=== PATIENT | female | born 1960 | race Caucasian/White ===

== ENCOUNTER 2021-05-28 11:40 | Inpatient (IN) | payer MEDICARE, SELFPAY ==
[2021-05-28] VITALS (7 sets, daily range): BP systolic 93–178; BP diastolic 65–97; PULSE 74–101; RESP 15–18; TEMP 36.6–37.1; O2SAT 92–99; BMI 22.3
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
[2021-05-28 12:12] LABS: Basophils # 0.1 10^3/uL (0.0-0.1); Basophils % 0.8 %; Eosinophils # 0.2 10^3/uL (0.0-0.8); Eosinophils % 1.8 %; Hematocrit 44.7 % (37.0-47.0); Hemoglobin 15.2 g/dL (11.5-15.3); Lymphocytes # 2.9 10^3/uL (0.8-4.8); Lymphocytes % 28.3 %; Mean Corpuscular Hemoglobin 30.2 pg (28.0-34.0); Mean Corpuscular Volume 88.7 fl (81-99); Mean Platelet Volume 11.8 fL (7.4-10.4); Monocytes # 0.5 10^3/uL (0.2-0.9); Monocytes % 4.9 %; Neutrophils # 6.49 10^3/uL (1.8-7.7); Neutrophils % 63.9 %; Nucleated Red Blood Cells % 0 %; Platelet Count 339 10^3/cmm (130-400); Red Blood Count 5.04 10^6/uL (4.1-5.3); Red Cell Distribution Width 12.8 % (12.1-15.1); White Blood Count 10.2 10^3/uL (4.0-10.0)
[2021-05-28 12:28] LABS: Anion Gap 13.3 (5-19); Blood Urea Nitrogen 13 mg/dL (8-23); Calcium 9.7 mg/dL (8.5-10.5); Carbon Dioxide 27 mmol/L (22-29); Chloride 97 mmol/L (98-107); Creatinine Clr Calc Pharmacy 105.2144; Glomerular Filtration Rate 125.4 mL/min (90-130); Glucose 260 mg/dL (65-115); Osmolality Calculated 285 mOsm/kg (285-295); Potassium 4.3 mmol/L (3.5-5.1); Sodium 133 mmol/L (136-145)
[2021-05-28] MEDS: acetaminophen 500 mg Tablet PO (12:30)
[2021-05-28 12:32] LABS: Acetaminophen < 5.0 ug/mL (10-30); Salicylate < 0.3 mg/dL (3-10)
--- NOTE | 2021-05-28 12:40 | PC.PHAR ---
pt states she takes care of her own medications-rx filled on 05/19/21 for metformin plain 500mg 14d/s from er dr [place] for 500mg bid-pt states she takes bid to tid-pt states she use to be on nph but hasnt used that insulin for 3-4 years
[2021-05-28] MEDS: metformin 500 mg Tablet PO (17:15)
[2021-05-28] MEDS: hyDROXYzine 25 mg Capsule 50 MG PO ×2 (17:17→19:47)
--- NOTE | 2021-05-28 17:23 | PC.NURSE ---
PRN VISTARIL 50 MG GIVEN PO PER PT C/O STATED ANXIETY PT TEARFUL UP ON UNIT
[2021-05-28] MEDS: trazodone 50 mg Tablet PO (19:47)
[2021-05-28 21:51] LABS: Glucose Point of Care 344 mg/dL (70-110)
[2021-05-29 06:00] VITALS: BP 155/78; PULSE 85; RESP 15; TEMP 37.1; O2SAT 97
[2021-05-29 06:44] LABS: Glucose Point of Care 384 mg/dL (70-110)
[2021-05-29] MEDS: metformin 500 mg Tablet PO ×2 (08:10→16:49)
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
--- NOTE | 2021-05-29 12:23 | NPU.GN ---
[facility] Group Topic:Thought Processing General Mood of Group: The patient come to group willingly. The patient was on time, good hygiene and properly dressed. The group discussed how the mind thinks and discussed negative thoughts and how we process those negative thoughts. The patient did participate in the group. The patient were all gave a thought table to be able to list specific negative thoughts and were able to come up with different ways to cope with those thoughts. The group was able to go outside for fresh air, which in turn helped the group to open up more. Information about the NPU was discussed, information about the routine for NPU, the doctor and nursing staff as well as social sciences professor and how they each play a part in their care while here. 96 hr holds and 21 day holds were also explained as well.
[2021-05-29 14:00] VITALS: BP 159/78; PULSE 93; RESP 20; TEMP 36.8; O2SAT 97
[2021-05-29 20:17] LABS: Glucose Point of Care 376 mg/dL (70-110)
[2021-05-29 20:52] VITALS: BP 159/75; PULSE 100; RESP 17; TEMP 36.7; O2SAT 96
[2021-05-29] MEDS: hyDROXYzine 25 mg Capsule 50 MG PO (21:19)
[2021-05-29] MEDS: trazodone 50 mg Tablet PO (21:20)
[2021-05-30 06:00] VITALS: BP 162/77; PULSE 94; RESP 20; TEMP 36.8; O2SAT 96
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
[2021-05-30 06:59] LABS: Glucose Point of Care 436 mg/dL (70-110)
[2021-05-30] MEDS: metformin 500 mg Tablet PO ×2 (07:38→18:03)
[2021-05-30 11:19] LABS: Glucose Point of Care 491 mg/dL (70-110)
[2021-05-30 14:00] VITALS: BP 173/86; PULSE 98; RESP 20; TEMP 36.6; O2SAT 98
--- NOTE | 2021-05-30 15:51 | PC.NURSE ---
Physician notified of elevated blood sugars. Dr. Mccullough will be putting in a hospitalist consult.
[2021-05-30] MEDS: hyDROXYzine 25 mg Capsule 50 MG PO ×2 (18:03→20:07)
[2021-05-30] MEDS: trazodone 50 mg Tablet PO (20:07)
--- NOTE | 2021-05-30 20:10 | PC.NURSE ---
pt requested sleep and anxiety meds. Trazodone 50mg po for sleep and Vistaril 50mg po for anxiety given.
[2021-05-30 20:40] VITALS: BP 121/75; PULSE 98; RESP 17; TEMP 37; O2SAT 96
--- NOTE | 2021-05-31 | PC.NURSE ---
pt resting quietly at this time with both eyes closed.
[2021-05-31 06:00] VITALS: BP 121/75; PULSE 98; RESP 17; TEMP 37; O2SAT 96
[2021-05-31 06:39] LABS: Glucose Point of Care 466 mg/dL (70-110)
[2021-05-31 07:25] LABS: Amphetamines Screen Urine Negative (Negative); Barbiturates Screen Urine Negative (Negative); Benzodiazepines Screen Urine Negative (Negative); Cocaine Screen Urine Negative (Negative); Opiate Screen Urine Negative (Negative); PCP Screen Urine Negative (Negative); THC Screen Urine Negative (Negative)
[2021-05-31] MEDS: metformin 500 mg Tablet PO ×2 (09:30→17:33)
[2021-05-31 11:34] LABS: Glucose Point of Care 494 mg/dL (70-110)
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
[2021-05-31 14:00] VITALS: BP 147/71; PULSE 108; RESP 20; TEMP 36.3; O2SAT 97
[2021-05-31 15:04] LABS: Glucose Point of Care 97 mg/dL (70-110)
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
[2021-05-31 17:00] LABS: Glucose Point of Care 137 mg/dL (70-110)
[2021-05-31 20:27] LABS: Glucose Point of Care 315 mg/dL (70-110)
[2021-05-31] MEDS: ARIPiprazole 10 mg Tablet 5 MG PO (21:24)
[2021-05-31] MEDS: insulin glargine 100 units/1 mL 10 UNIT SUBCUT ×2 (21:27→22:28)
[2021-05-31 22:00] VITALS: BP 171/82; PULSE 107; RESP 18; TEMP 36.7; O2SAT 93
[2021-06-01 06:00] VITALS: BP 121/69; PULSE 92; RESP 17; TEMP 36.8; O2SAT 98
[2021-06-01 07:27] LABS: Glucose Point of Care 315 mg/dL (70-110)
[2021-06-01] MEDS: metformin 500 mg Tablet PO ×2 (09:28→16:41)
[2021-06-01] MEDS: ARIPiprazole 10 mg Tablet 5 MG PO (09:28)
--- NOTE | 2021-06-01 10:53 | P.PN_ITS ---
Subjective Subjective: Interval history: Bebe reports she is doing okay. She has no complaints. Medications: Reviewed: Yes Vitals/I&O/Wt Last Vital Signs Temp 98.2 F 06/01/21 06:00 Pulse 92 06/01/21 06:00 Resp 17 06/01/21 06:00 BP 121/69 06/01/21 06:00 Pulse Ox 98 06/01/21 06:00 Physical Exam 2 Narrative: EXAM NARRATIVE: General female in no acute distress, informative. Neck supple no lymphadenopathy or JVD. Respiratory clear to auscultation no wheezes. Cardio regular rate and rhythm no murmurs. GI soft nontender positive bowel sounds Extremities no cyanosis clubbing or edema Data : 05/28/21 12:01 05/28/21 12:01 A&P Assessment and plan (1) Diabetes: Sliding Scale carbohydrate consistent meals Await hemoglobin A1c, TSH Increase Lantus to 20 units at night Status: Acute (2) Alcohol use disorder, moderate, dependence: Montior for alcohol withdrawl. Status: Acute (3) Suicidal ideation: Defer to psychiatry Status: Acute (4) Bipolar 1 disorder, depressed: Defer to psychiatry Status: Acute Additional A&P Information Thank you for this consultation At this point I will sign off. Please call if any questions. She should be discharged on 20 units of Lantus and her Metformin. She will need to see her primary care provider 3 to 4 days after discharge for review of sugars. It is unpredictable after discharged with these will run, and depends greatly on her oral intake. Please call with any questions or changes. 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
[2021-06-01 11:53] LABS: Thyroid Stimulating Hormone 0.76 uIU/mL (0.27-4.20)
[2021-06-01 14:00] VITALS: BP 121/74; PULSE 99; RESP 20; TEMP 36.5; O2SAT 95
[2021-06-01 15:45] LABS: Estmated Average Glucose 292; Hemoglobin A1C 11.8 % (4.0-6.0)
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
[2021-06-01] MEDS: hyDROXYzine 25 mg Capsule 50 MG PO (20:36)
[2021-06-01] MEDS: trazodone 50 mg Tablet PO (20:36)
[2021-06-01] MEDS: insulin glargine 100 units/1 mL 10 UNIT SUBCUT (20:37)
[2021-06-01 22:00] VITALS: BP 121/74; PULSE 99; RESP 20; TEMP 36.5; O2SAT 95
[2021-06-01 22:26] VITALS: BP 159/80; PULSE 92; RESP 16; TEMP 36.4; O2SAT 97
[2021-06-02] MEDS: trazodone 50 mg Tablet PO ×2 (00:31→21:34)
[2021-06-02 06:00] VITALS: BP 124/65; PULSE 110; RESP 18; TEMP 36.6; O2SAT 97
[2021-06-02] MEDS: metformin 500 mg Tablet PO ×3 (08:30→21:34)
[2021-06-02] MEDS: ondansetron 4 MG Tablet PO (11:34)
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
[2021-06-02 14:00] VITALS: BP 130/79; PULSE 95; RESP 16; TEMP 36.2; O2SAT 95
[2021-06-02 15:15] LABS: Creatine Phosphokinase 40 U/L (26-192)
[2021-06-02 20:00] VITALS: BP 131/71; PULSE 93; RESP 18; TEMP 36.9; O2SAT 96
[2021-06-02] MEDS: insulin glargine 100 units/1 mL 10 UNIT SUBCUT (21:34)
[2021-06-02] MEDS: hyDROXYzine 25 mg Capsule 50 MG PO (21:34)
--- NOTE | 2021-06-02 21:40 | PC.NURSE ---
pt requested sleep and anxiety meds, Vistaril 50mg po and Trazodone 50mg po given.
--- NOTE | 2021-06-02 23:00 | PC.NURSE ---
pt resting quietly with both eyes closed.
[2021-06-02 23:12] LABS: Add Urine Microscopic? NO; Charge for UA Resulting for Rev
[2021-06-02 23:27] LABS: Bilirubin Urine Neg (Negative); Blood Urine Neg (Negative); Glucose Urine UA 4+ (Normal); Ketones Urine Negative (Negative); Leukocyte Esterase Urine Negative (Negative); Nitrate Urine Negative (Negative); Protein Urine Neg (Negative); Specific Gravity, Urine 1.005 (1.005-1.030); Urine Appearance Clear (CLEAR); Urine Color Straw (Yellow); Urobilinogen Urine Norm (Negative); pH Urine 5 (5-7)
[2021-06-03] MEDS: ibuprofen 200 mg Tablet 600 MG PO (01:26)
[2021-06-03 06:00] VITALS: BP 131/71; PULSE 93; RESP 18; TEMP 36.9; O2SAT 96; BMI 22.3
[2021-06-03] MEDS: ondansetron 4 MG Tablet PO (07:02)
[2021-06-03 08:06] LABS: Glucose Point of Care 192 mg/dL (70-110)
[2021-06-03 08:06] LABS: Glucose Point of Care 386 mg/dL (70-110)
[2021-06-03 08:06] LABS: Glucose Point of Care 210 mg/dL (70-110)
[2021-06-03 08:06] LABS: Glucose Point of Care 245 mg/dL (70-110)
[2021-06-03 08:06] LABS: Glucose Point of Care 361 mg/dL (70-110)
[2021-06-03 08:06] LABS: Glucose Point of Care 232 mg/dL (70-110)
[2021-06-03 08:06] LABS: Glucose Point of Care 170 mg/dL (70-110)
[2021-06-03 08:06] LABS: Glucose Point of Care 406 mg/dL (70-110)
[2021-06-03] MEDS: metformin 500 mg Tablet PO ×2 (09:54→16:47)
--- NOTE | 2021-06-03 09:55 | PC.NURSE ---
Patient refused Abilify after it was opened. Wasted in the Pyxis
[2021-06-03 11:30] LABS: Glucose Point of Care 346 mg/dL (70-110)
[2021-06-03] MEDS: nicotine 21 mg Patch 1 PATCH TRANSDERMA (12:23)
[2021-06-03 14:00] VITALS: BP 135/74; PULSE 97; RESP 14; TEMP 36.8; O2SAT 97
[2021-06-03 16:37] LABS: Glucose Point of Care 189 mg/dL (70-110)
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
[2021-06-03 20:10] LABS: Glucose Point of Care 256 mg/dL (70-110)
[2021-06-03] MEDS: trazodone 50 mg Tablet PO (21:00)
[2021-06-03] MEDS: hyDROXYzine 25 mg Capsule 50 MG PO (21:00)
[2021-06-03] MEDS: insulin glargine 100 units/1 mL 10 UNIT SUBCUT (21:00)
[2021-06-03 21:29] VITALS: BP 154/78; PULSE 88; RESP 16; TEMP 36.6; O2SAT 95
[2021-06-04] MEDS: acetaminophen 325 mg Tablet 650 MG PO (03:07)
[2021-06-04] MEDS: hyDROXYzine 25 mg Capsule 50 MG PO ×2 (03:07→19:44)
--- NOTE | 2021-06-04 03:09 | PC.NURSE ---
pt requesting more pain, sleep and anxiety med. pt advised staff is unable to give sleep med after 2am but is able to give her more Vistaril. Vistaril 50mg po given for anxiety and Tylenol 650mg po given for c/o neck/head pain rated 10/10.
[2021-06-04 03:22] LABS: Glucose Point of Care 276 mg/dL (70-110)
[2021-06-04 06:00] VITALS: BP 155/81; PULSE 94; RESP 15; TEMP 36.6; O2SAT 98
[2021-06-04 06:43] LABS: Glucose Point of Care 214 mg/dL (70-110)
[2021-06-04] MEDS: metformin 500 mg Tablet PO ×2 (07:45→16:54)
[2021-06-04] MEDS: polyethylene glycol 3350 Pkt 17 gm PO (08:16)
[2021-06-04 11:46] LABS: Glucose Point of Care 254 mg/dL (70-110)
[2021-06-04 13:48] VITALS: BP 151/78; PULSE 92; RESP 16; TEMP 36.9; O2SAT 97
[2021-06-04] MEDS: nicotine 21 mg Patch 1 PATCH TRANSDERMA (14:54)
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
[2021-06-04 16:33] LABS: Glucose Point of Care 201 mg/dL (70-110)
[2021-06-04] MEDS: ibuprofen 200 mg Tablet 600 MG PO (18:10)
[2021-06-04] MEDS: trazodone 50 mg Tablet PO (19:44)
[2021-06-04] MEDS: insulin glargine 100 units/1 mL 10 UNIT SUBCUT (19:44)
[2021-06-04 20:24] VITALS: BP 157/84; PULSE 98; RESP 14; TEMP 37.1; O2SAT 98
[2021-06-04 20:47] LABS: Glucose Point of Care 210 mg/dL (70-110)
[2021-06-05] MEDS: nicotine 2 mg Gum BUCCAL (01:50)
[2021-06-05 06:00] VITALS: BP 110/64; PULSE 88; RESP 16; TEMP 36.5; O2SAT 98
[2021-06-05 06:39] LABS: Glucose Point of Care 187 mg/dL (70-110)
[2021-06-05] MEDS: ondansetron 4 MG Tablet PO (06:54)
[2021-06-05] MEDS: metformin 500 mg Tablet PO ×2 (08:57→16:41)
[2021-06-05] MEDS: nicotine 21 mg Patch 1 PATCH TRANSDERMA (08:57)
[2021-06-05 11:32] LABS: Glucose Point of Care 149 mg/dL (70-110)
[2021-06-05 14:00] VITALS: BP 110/64; PULSE 88; RESP 16; TEMP 36.5; O2SAT 98
[2021-06-05 16:44] LABS: Glucose Point of Care 303 mg/dL (70-110)
[2021-06-05] MEDS: hyDROXYzine 25 mg Capsule 50 MG PO (20:24)
[2021-06-05] MEDS: trazodone 50 mg Tablet PO (20:24)
[2021-06-05] MEDS: ibuprofen 200 mg Tablet 600 MG PO (20:24)
[2021-06-05] MEDS: insulin glargine 100 units/1 mL 10 UNIT SUBCUT (20:26)
--- NOTE | 2021-06-05 20:30 | PC.NURSE ---
pt requsted sleep, anxiety meds as well as ibuprofen. trazodone 50mg po for sleep, motrin 600mg for joint pain and vistaril 50mg po for anxiety given,
[2021-06-05 21:31] LABS: Glucose Point of Care 164 mg/dL (70-110)
[2021-06-05 22:00] VITALS: BP 144/77; PULSE 101; RESP 18; TEMP 36.7; O2SAT 90
[2021-06-06 06:00] VITALS: BP 116/89; PULSE 91; RESP 18; TEMP 37.7; O2SAT 97
[2021-06-06 07:09] LABS: Glucose Point of Care 238 mg/dL (70-110)
[2021-06-06] MEDS: ARIPiprazole 10 mg Tablet PO (08:01)
[2021-06-06] MEDS: metformin 500 mg Tablet PO (08:01)
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
[2021-06-06 10:49] VITALS: BP 116/89; PULSE 91; RESP 18; TEMP 37.7; O2SAT 97
[2021-06-06 11:27] LABS: Glucose Point of Care 185 mg/dL (70-110)
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
== END 2021-06-06 14:20 | disposition home or self-care (01) | DRG 885 ==
LOC: ER 14:00 → NP 15:20
PROVIDERS: Internal Medicine; Admitting Provider Psychiatry & Neurology Child & Adolescent Psychiatry; Emergency Provider Emergency Medicine; Visit Provider Psychiatry & Neurology Child & Adolescent Psychiatry
DX: F31.9 Bipolar disorder, unspecified (principal); T74.11XA Adult physical abuse, confirmed, initial encounter; R45.851 Suicidal ideations; Y07.03 Male partner, perpetrator of maltreatment and neglect; F10.20 Alcohol dependence, uncomplicated; E11.65 Type 2 diabetes mellitus with hyperglycemia; F17.210 Nicotine dependence, cigarettes, uncomplicated; Z63.0 Problems in relationship with spouse or partner; Z62.810 Personal history of physical and sexual abuse in childhood; Z79.4 Long term (current) use of insulin
CPT/HCPCS: 36415; 36416; 73100; 73130; 80048; 80306; 80307; 81003; 82550; 82962; 83036; 84443; 85025; 96372; 99285; G0378; J1815 ×2; Q0162

== ENCOUNTER 2021-06-17 15:54 | Emergency (ER) | payer MEDICARE, SELFPAY ==
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
[2021-06-17 16:06] LABS: Glucose Point of Care 93 mg/dL (70-110)
[2021-06-17 16:09] VITALS: BP 144/73; PULSE 104; RESP 18; TEMP 37.2; O2SAT 99; BMI 17.2
[2021-06-17 16:20] LABS: Add Urine Microscopic? NO; Charge for UA Resulting for Rev
[2021-06-17 16:35] LABS: Basophils # 0.1 10^3/uL (0.0-0.1); Basophils % 0.7 %; Eosinophils # 0.3 10^3/uL (0.0-0.8); Eosinophils % 2.5 %; Hematocrit 40.7 % (37.0-47.0); Hemoglobin 13.6 g/dL (11.5-15.3); Lymphocytes # 4.9 10^3/uL (0.8-4.8); Lymphocytes % 35.9 %; Mean Corpuscular HGB Conc 33.4 g/dL (30.0-36.0); Mean Corpuscular Volume 89.8 fl (81-99); Mean Platelet Volume 10.6 fL (7.4-10.4); Monocytes # 0.8 10^3/uL (0.2-0.9); Monocytes % 5.7 %; Neutrophils # 7.55 10^3/uL (1.8-7.7); Neutrophils % 54.8 %; Nucleated Red Blood Cells % 0 %; Platelet Count 416 10^3/cmm (130-400); Red Blood Count 4.53 10^6/uL (4.1-5.3); Red Cell Distribution Width 13.1 % (12.1-15.1); White Blood Count 13.8 10^3/uL (4.0-10.0)
[2021-06-17 16:45] VITALS: BP 141/105; PULSE 98; RESP 18; O2SAT 97
[2021-06-17 16:52] LABS: Bilirubin Urine Neg (Negative); Blood Urine Neg (Negative); Glucose Urine UA Norm (Normal); Ketones Urine Negative (Negative); Leukocyte Esterase Urine Negative (Negative); Nitrate Urine Negative (Negative); Protein Urine Neg (Negative); Urine Appearance Clear (CLEAR); Urine Color Straw (Yellow); Urobilinogen Urine Norm (Negative); pH Urine 5 (5-7)
[2021-06-17 16:58] LABS: Alanine Aminotransferase 17 U/L (0-33); Alkaline Phosphatase 110 IU/L (35-105); Anion Gap 16.1 (5-19); Aspartate Amino Transferase 15 U/L (0-32); Blood Urea Nitrogen 16 mg/dL (8-23); Calcium 9.5 mg/dL (8.5-10.5); Carbon Dioxide 27 mmol/L (22-29); Chloride 100 mmol/L (98-107); Globulin 3.2 g/dL (1.3-4.6); Glomerular Filtration Rate 125.4 mL/min (90-130); Glucose 70 mg/dL (65-115); Osmolality Calculated 288 mOsm/kg (285-295); Potassium 4.1 mmol/L (3.5-5.1); Sodium 139 mmol/L (136-145); Total Bilirubin 0.2 mg/dL (0.15-1.2); Total Protein 7.2 g/dL (6.6-8.7)
[2021-06-17 17:05] LABS: Alcohol Level < 10 mg/dL (0-10)
[2021-06-17 17:40] LABS: Glucose Point of Care 91 mg/dL (70-110)
[2021-06-17 18:10] VITALS: BP 186/76; PULSE 92; RESP 18; O2SAT 96
[2021-06-17 18:17] LABS: Glucose Point of Care 177 mg/dL (70-110)
== END 2021-06-17 18:49 | disposition home or self-care (01) ==
PROVIDERS: Emergency Provider Emergency Medicine
DX: T38.3X1A Poisoning by insulin and oral hypoglycemic [antidiabetic] drugs, accidental (unintentional), initial encounter (principal); E11.649 Type 2 diabetes mellitus with hypoglycemia without coma; Z79.4 Long term (current) use of insulin; F17.210 Nicotine dependence, cigarettes, uncomplicated
CPT/HCPCS: 36416; 80053; 80307; 81003; 82962; 85025; 99283

== ENCOUNTER 2021-08-16 16:34 | Inpatient (IN) | payer MEDICARE, SELFPAY ==
[2021-08-16 16:35] VITALS: BP 158/72; PULSE 109; RESP 18; TEMP 36.9; O2SAT 96; BMI 18.8
[2021-08-16 16:59] VITALS: BP 158/72; PULSE 109; RESP 18; TEMP 36.9; O2SAT 98
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
--- NOTE | 2021-08-16 17:21 | PC.PHAR ---
PT UNABLE TO VERIFY MEDICATIONS-MEDICATIONS ENTERED ARE MEDS THAT WERE ON PREVIOUS ENTERED MED LIST AND FROM WHAT EXT MED HISTORY SHOWS WAS LAST FILLED-ARIPIPRAZOLE 10MG DAILY LAST FILLED 06/06/21 30D/S-NOTES ARE MADE IN THE PHARMACY COMMENTS
[2021-08-16 18:15] LABS: Add Urine Microscopic? NO; Charge for UA Resulting for Rev
[2021-08-16 18:19] LABS: Bilirubin Urine Neg (Negative); Blood Urine Neg (Negative); Glucose Urine UA 4+ (Normal); Ketones Urine Negative (Negative); Leukocyte Esterase Urine Negative (Negative); Nitrate Urine Negative (Negative); Protein Urine Neg (Negative); Urine Appearance Clear (CLEAR); Urine Color Yellow (Yellow); Urobilinogen Urine Norm (Negative); pH Urine 5 (5-7)
[2021-08-16 18:41] LABS: Basophils # 0.1 10^3/uL (0.0-0.1); Basophils % 0.6 %; Eosinophils # 0.2 10^3/uL (0.0-0.8); Eosinophils % 1.8 %; Hematocrit 43.1 % (37.0-47.0); Hemoglobin 14.4 g/dL (11.5-15.3); Lymphocytes % 30.6 %; Mean Corpuscular HGB Conc 33.4 g/dL (30.0-36.0); Mean Corpuscular Hemoglobin 29.4 pg (28.0-34.0); Mean Corpuscular Volume 88.1 fl (81-99); Mean Platelet Volume 12.1 fL (7.4-10.4); Monocytes # 0.6 10^3/uL (0.2-0.9); Monocytes % 4.6 %; Neutrophils # 8.18 10^3/uL (1.8-7.7); Neutrophils % 62.2 %; Nucleated Red Blood Cells % 0 %; Platelet Count 278 10^3/cmm (130-400); Red Blood Count 4.89 10^6/uL (4.1-5.3); Red Cell Distribution Width 11.9 % (12.1-15.1); White Blood Count 13.1 10^3/uL (4.0-10.0)
[2021-08-16 18:46] LABS: Amphetamines Screen Urine Negative (Negative); Barbiturates Screen Urine Negative (Negative); Benzodiazepines Screen Urine Positive (Negative); Cocaine Screen Urine Negative (Negative); Opiate Screen Urine Negative (Negative); PCP Screen Urine Negative (Negative); THC Screen Urine Negative (Negative)
[2021-08-16 19:22] LABS: Alanine Aminotransferase 14 U/L (0-33); Albumin Level 4.2 g/dL (3.5-5.2); Alkaline Phosphatase 120 IU/L (35-105); Anion Gap 15.5 (5-19); Aspartate Amino Transferase 12 U/L (0-32); Blood Urea Nitrogen 11 mg/dL (8-23); Calcium 9.7 mg/dL (8.5-10.5); Carbon Dioxide 28 mmol/L (22-29); Chloride 97 mmol/L (98-107); Glomerular Filtration Rate 101.3 mL/min (90-130); Glucose 297 mg/dL (65-115); Osmolality Calculated 294 mOsm/kg (285-295); Potassium 3.5 mmol/L (3.5-5.1); Sodium 137 mmol/L (136-145); Thyroid Stimulating Hormone 0.22 uIU/mL (0.27-4.20); Total Bilirubin 0.4 mg/dL (0.15-1.2); Total Protein 7.2 g/dL (6.6-8.7)
[2021-08-16 19:23] LABS: Acetaminophen < 5.0 ug/mL (10-30); Alcohol Level < 10 mg/dL (0-10); Salicylate < 0.3 mg/dL (3-10)
[2021-08-16] MEDS: diphenhydrAMINE 50 mg/mL SDV 1mL IM (21:25)
--- NOTE | 2021-08-16 21:28 | PC.NURSE ---
Pt behavior is becoming manic, agitation increasing - IM Benadryl administered.
[2021-08-16 21:54] VITALS: BP 160/85; PULSE 103; RESP 19; O2SAT 98
[2021-08-16 21:59] VITALS: BP 160/85; PULSE 105; RESP 18; TEMP 36.7; O2SAT 97
[2021-08-16] MEDS: hyDROXYzine 25 mg Capsule 50 MG PO (22:54)
[2021-08-16] MEDS: trazodone 50 mg Tablet PO (22:54)
--- NOTE | 2021-08-16 22:58 | PC.ADMIT ---
[id number] [facility] Admission Note: The patient,Bebe Baeza,61 y/o, was given written information regarding hospital policies, unit procedures and contact persons. Patient's smoking status: current every day smoker. Vital Signs - 8 hr 08/16/21 16:35 08/16/21 16:59 08/16/21 21:54 Temperature 98.4 F 98.4 F Pulse Rate 109 H 109 H 103 H Respiratory Rate 18 18 19 H Blood Pressure 158/72 158/72 160/85 Pulse Oximetry 96 98 98 08/16/21 21:59 Temperature 98.0 F Pulse Rate 105 H Respiratory Rate 18 Blood Pressure 160/85 Pulse Oximetry 97 Patient arrived on unit hyperverbal, mumbling and delusional. Patient has psychotic behavior and is not able to answer admission assessment questions. Skin assessment unremarkable. Pt changed to cotton scrubs and given snack. Will attempt assessment at later time.
[2021-08-16] MEDS: nicotine 2 mg Gum BUCCAL (23:15)
[2021-08-16] MEDS: LORazepam 2 mg/mL INJ 1 mL IM (23:40)
[2021-08-17] MEDS: ondansetron 4 MG Tablet PO (00:14)
--- NOTE | 2021-08-17 00:53 | PC.NURSE ---
Ordered Seroquil was wasted due to patients refusal. stating IT GIVES ME A BAD METALLIC TASTE . Was given Atavan 2mg IM for psychosis and agitation.
[2021-08-17 06:00] VITALS: RESP 16
[2021-08-17 08:19] LABS: Glucose Point of Care 276 mg/dL (70-110)
[2021-08-17] MEDS: metformin 500 mg Tablet PO ×2 (08:33→17:01)
[2021-08-17] MEDS: insulin lispro 100 unit/1 mL SUBCUT ×3 (08:33→17:25)
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
[2021-08-17 11:11] LABS: Glucose Point of Care 304 mg/dL (70-110)
[2021-08-17] MEDS: ARIPiprazole 10 mg Tablet PO (12:25)
--- NOTE | 2021-08-17 13:01 | NPU.GN ---
[facility] Unit Group Topic: Coping Bingo General Mood of Group: Patient did come to group, but when asked if she wanted to join, she was dressed naked in the bed with only a sheet over her. She did dress and eventually come to group. She was babbling and not making sense. She did not seem to understand group even though it was explained to her. Her mental status was not well. Eventually she was helped back to her room.
[2021-08-17 14:00] VITALS: BP 160/85; PULSE 105; RESP 16; TEMP 36.7; O2SAT 97
--- NOTE | 2021-08-17 15:13 | PC.SOCIAL ---
IMM Update Unable to discuss medicare rights with patient due to AMS. Attempted to call patient's life partner to discuss medicare rights, no answer, left voicemail.
[2021-08-17 17:05] LABS: Glucose Point of Care 206 mg/dL (70-110)
[2021-08-17] MEDS: acetaminophen 325 mg Tablet 650 MG PO (18:59)
[2021-08-17] MEDS: trazodone 50 mg Tablet PO (20:21)
[2021-08-17] MEDS: hyDROXYzine 25 mg Capsule 50 MG PO (20:21)
--- NOTE | 2021-08-17 21:22 | PC.NURSE ---
Pt's blood sugar of 249 did not transfer into system due to error in pt sticker/bracelet.
[2021-08-17 21:30] LABS: Glucose Point of Care 249 mg/dL (70-110)
[2021-08-17 21:31] VITALS: BP 117/63; PULSE 93; RESP 17; TEMP 36.6; O2SAT 96
[2021-08-17] MEDS: insulin glargine 100 units/1 mL 10 UNIT SUBCUT (21:33)
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
[2021-08-18] MEDS: ibuprofen 200 mg Tablet 600 MG PO (02:15)
[2021-08-18 06:00] VITALS: RESP 17
[2021-08-18 06:43] LABS: Glucose Point of Care 363 mg/dL (70-110)
[2021-08-18] MEDS: metformin 500 mg Tablet PO ×2 (09:33→17:32)
[2021-08-18] MEDS: acetaminophen 325 mg Tablet 650 MG PO ×2 (09:33→14:02)
[2021-08-18] MEDS: ARIPiprazole 10 mg Tablet PO (11:25)
[2021-08-18] MEDS: insulin lispro 100 unit/1 mL SUBCUT ×2 (13:41→17:32)
[2021-08-18 14:00] VITALS: BP 155/79; PULSE 103; RESP 18; TEMP 36.4; O2SAT 97
[2021-08-18] MEDS: hyDROXYzine 25 mg Capsule 50 MG PO (14:02)
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
[2021-08-18 18:11] LABS: Glucose Point of Care 426 mg/dL (70-110)
[2021-08-18 18:11] LABS: Glucose Point of Care 276 mg/dL (70-110)
[2021-08-18 20:32] LABS: Glucose Point of Care 106 mg/dL (70-110)
[2021-08-18 20:43] VITALS: BP 155/81; PULSE 87; RESP 17; TEMP 36.6; O2SAT 98
[2021-08-18] MEDS: polyethylene glycol 3350 Pkt 17 gm PO (21:14)
[2021-08-18] MEDS: quetiapine 100 mg Tablet PO (21:14)
[2021-08-18] MEDS: insulin glargine 100 units/1 mL 10 UNIT SUBCUT (21:14)
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
--- NOTE | 2021-08-19 05:10 | PC.NURSE ---
Pt continue to c/o left lower rib pain. No bruising noted by this Nurse. Patient did state earlier in the evening, I have Cancer ya know? This Nurse asked her what kind of Ca and she replied I don't know, but I know I have it. Will report to following shift pt's continued rib pain. Will continue to monitor.
[2021-08-19 06:00] VITALS: BP 131/77; PULSE 101; RESP 18; TEMP 36.6; O2SAT 99; BMI 18.8
--- NOTE | 2021-08-19 06:34 | XRR_ITS ---
PROCEDURE INFORMATION: Exam: XR Left Ribs Exam date and time: 08/19/2021 6:34 AM Age: 61 years old Clinical indication: Injury or trauma; Fall; Rib area, left side; Blunt trauma; Additional info: Fall/left side rib pain TECHNIQUE: Imaging protocol: XR Left ribs. Views: 2 views. COMPARISON: No relevant prior studies available. FINDINGS: Bones/joints: No evidence of rib fracture. Soft tissues: Normal. XR/XR ribs LT 2V* [id number] IMPRESSION: No evidence of rib fracture. Radiation Dose CTDIVOL = (mGy): DLP = (mGy-cm)
[2021-08-19 06:49] LABS: Glucose Point of Care 243 mg/dL (70-110)
[2021-08-19] MEDS: metformin 500 mg Tablet PO ×2 (09:36→17:28)
[2021-08-19] MEDS: polyethylene glycol 3350 Pkt 17 gm PO (09:39)
[2021-08-19] MEDS: nicotine 2 mg Gum BUCCAL (09:39)
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
[2021-08-19] MEDS: ARIPiprazole 10 mg Tablet PO (11:21)
[2021-08-19 11:33] LABS: Glucose Point of Care 341 mg/dL (70-110)
[2021-08-19 14:00] VITALS: BP 156/77; PULSE 114; RESP 18; TEMP 36.2; O2SAT 97
[2021-08-19] MEDS: insulin lispro 100 unit/1 mL SUBCUT ×2 (14:36→17:29)
[2021-08-19 16:32] LABS: Glucose Point of Care 95 mg/dL (70-110)
[2021-08-19 20:44] LABS: Glucose Point of Care 199 mg/dL (70-110)
[2021-08-19 20:57] VITALS: BP 120/87; PULSE 89; RESP 18; TEMP 37; O2SAT 97
[2021-08-19] MEDS: insulin glargine 100 units/1 mL 10 UNIT SUBCUT (21:03)
[2021-08-19] MEDS: quetiapine 100 mg Tablet PO (21:03)
[2021-08-19] MEDS: hyDROXYzine 25 mg Capsule 50 MG PO (21:04)
[2021-08-20 06:00] VITALS: BP 168/72; PULSE 89; RESP 17; TEMP 37.1; O2SAT 96
[2021-08-20 06:33] LABS: Glucose Point of Care 303 mg/dL (70-110)
[2021-08-20] MEDS: insulin lispro 100 unit/1 mL SUBCUT ×3 (08:31→17:28)
[2021-08-20] MEDS: metformin 500 mg Tablet PO ×2 (08:31→17:28)
[2021-08-20] MEDS: ARIPiprazole 10 mg Tablet PO (08:33)
[2021-08-20] MEDS: polyethylene glycol 3350 Pkt 17 gm PO (08:34)
[2021-08-20 11:15] LABS: Glucose Point of Care 334 mg/dL (70-110)
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
[2021-08-20 14:00] VITALS: BP 162/73; PULSE 100; RESP 19; TEMP 36.7; O2SAT 98
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
[2021-08-20 16:28] LABS: Glucose Point of Care 197 mg/dL (70-110)
[2021-08-20] MEDS: acetaminophen 325 mg Tablet 650 MG PO (16:37)
[2021-08-20] MEDS: ibuprofen 200 mg Tablet PO (16:38)
[2021-08-20 20:33] LABS: Glucose Point of Care 147 mg/dL (70-110)
[2021-08-20] MEDS: hyDROXYzine 25 mg Capsule 50 MG PO (20:34)
[2021-08-20] MEDS: quetiapine 100 mg Tablet PO (20:34)
[2021-08-20] MEDS: insulin glargine 100 units/1 mL 10 UNIT SUBCUT (20:34)
[2021-08-20 21:21] VITALS: BP 158/85; PULSE 91; RESP 19; TEMP 37.2; O2SAT 98
[2021-08-21 04:00] LABS: Glucose Point of Care 191 mg/dL (70-110)
[2021-08-21 06:00] VITALS: BP 123/72; PULSE 110; RESP 15; TEMP 36.5; O2SAT 98
[2021-08-21 06:08] LABS: Glucose Point of Care 204 mg/dL (70-110)
[2021-08-21] MEDS: metformin 500 mg Tablet PO ×2 (10:04→17:29)
[2021-08-21] MEDS: ARIPiprazole 10 mg Tablet PO (10:05)
[2021-08-21] MEDS: polyethylene glycol 3350 Pkt 17 gm PO (10:05)
[2021-08-21] MEDS: nicotine 21 mg Patch 1 PATCH TRANSDERMA (10:14)
[2021-08-21] MEDS: insulin lispro 100 unit/1 mL SUBCUT ×3 (10:16→17:12)
[2021-08-21 11:53] LABS: Glucose Point of Care 241 mg/dL (70-110)
--- NOTE | 2021-08-21 12:37 | NPU.GN ---
[facility] Unit Group Topic:roup Topic: What are we Thankful For General Mood of Group: Bebe did attend and participated . She was social in group and she seems to friend a male patient in group as she looks out for him and tries to guide him when he is being disruptive in group. Her mindset seems to be improving.
[2021-08-21 14:00] VITALS: BP 151/74; PULSE 114; RESP 18; TEMP 37.2; O2SAT 97
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
[2021-08-21] MEDS: acetaminophen 325 mg Tablet 650 MG PO (16:29)
[2021-08-21 16:53] LABS: Glucose Point of Care 225 mg/dL (70-110)
[2021-08-21 19:18] LABS: Glucose Point of Care 193 mg/dL (70-110)
[2021-08-21] MEDS: quetiapine 100 mg Tablet PO (20:51)
[2021-08-21] MEDS: hyDROXYzine 25 mg Capsule 50 MG PO (20:51)
[2021-08-21] MEDS: insulin glargine 100 units/1 mL 10 UNIT SUBCUT (20:51)
[2021-08-21 21:44] VITALS: BP 160/71; PULSE 67; RESP 18; TEMP 37.2; O2SAT 96
[2021-08-22 06:00] VITALS: BP 107/62; PULSE 81; RESP 17; TEMP 36.6; O2SAT 98
[2021-08-22 07:10] LABS: Glucose Point of Care 168 mg/dL (70-110)
[2021-08-22] MEDS: insulin lispro 100 unit/1 mL SUBCUT ×3 (09:00→17:25)
[2021-08-22] MEDS: ARIPiprazole 10 mg Tablet PO (09:01)
[2021-08-22] MEDS: polyethylene glycol 3350 Pkt 17 gm PO (09:01)
[2021-08-22] MEDS: metformin 500 mg Tablet PO ×2 (09:01→17:24)
[2021-08-22 11:25] LABS: Glucose Point of Care 267 mg/dL (70-110)
--- NOTE | 2021-08-22 13:09 | NPU.GN ---
[facility] Group Topic:Group Topic: Pie of Emotions, Coping, and Supports General Mood of Group:Bebe did attend group and participates. She was groomed , and her demeanor was pleasant towards others and reseprctful. Her mental status seems to be improving.
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
[2021-08-22 14:00] VITALS: BP 146/73; PULSE 101; RESP 18; TEMP 36.6; O2SAT 97
[2021-08-22] MEDS: ARIPiprazole Maintena 400 MG IM (16:43)
[2021-08-22 16:47] LABS: Glucose Point of Care 150 mg/dL (70-110)
[2021-08-22 21:06] VITALS: BP 134/75; PULSE 99; RESP 18; O2SAT 98
[2021-08-22 21:08] LABS: Glucose Point of Care 251 mg/dL (70-110)
[2021-08-22] MEDS: quetiapine 100 mg Tablet PO (21:30)
[2021-08-22] MEDS: insulin glargine 100 units/1 mL 10 UNIT SUBCUT (21:30)
[2021-08-23] MEDS: ibuprofen 200 mg Tablet PO (03:18)
[2021-08-23 06:00] VITALS: RESP 18
[2021-08-23] MEDS: acetaminophen 325 mg Tablet 650 MG PO (06:30)
[2021-08-23 07:24] LABS: Glucose Point of Care 238 mg/dL (70-110)
[2021-08-23] MEDS: insulin lispro 100 unit/1 mL SUBCUT ×3 (08:54→17:18)
[2021-08-23] MEDS: polyethylene glycol 3350 Pkt 17 gm PO (08:54)
[2021-08-23] MEDS: metformin 500 mg Tablet PO ×2 (08:54→17:49)
[2021-08-23] MEDS: ARIPiprazole 10 mg Tablet PO (08:54)
[2021-08-23 11:23] LABS: Glucose Point of Care 298 mg/dL (70-110)
[2021-08-23] MEDS: nicotine 2 mg Gum BUCCAL (13:31)
[2021-08-23 14:00] VITALS: BP 139/71; PULSE 110; RESP 18; TEMP 36.7; O2SAT 97
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
[2021-08-23 16:18] LABS: Glucose Point of Care 166 mg/dL (70-110)
[2021-08-23 19:14] VITALS: BP 157/80; PULSE 112; RESP 20; TEMP 36.5; O2SAT 97
[2021-08-23 19:38] LABS: Glucose Point of Care 176 mg/dL (70-110)
[2021-08-23] MEDS: docusate sodium 100 mg Capsule PO (21:22)
[2021-08-23] MEDS: insulin glargine 100 units/1 mL 10 UNIT SUBCUT (21:22)
[2021-08-23] MEDS: quetiapine 100 mg Tablet PO (21:22)
[2021-08-24 05:34] VITALS: BP 134/73; PULSE 105; RESP 18; TEMP 36.6; O2SAT 98
[2021-08-24 06:50] LABS: Glucose Point of Care 244 mg/dL (70-110)
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
[2021-08-24] MEDS: ARIPiprazole 10 mg Tablet PO (09:17)
[2021-08-24] MEDS: magnesium citrate Btl 296 mL PO (09:17)
[2021-08-24] MEDS: insulin lispro 100 unit/1 mL SUBCUT ×3 (09:17→17:31)
[2021-08-24] MEDS: metformin 500 mg Tablet PO ×2 (09:17→17:30)
[2021-08-24 11:38] LABS: Glucose Point of Care 191 mg/dL (70-110)
[2021-08-24] MEDS: bisacodyl 5 mg Tablet 10 MG PO (13:16)
[2021-08-24 14:00] VITALS: BP 147/74; PULSE 112; RESP 20; TEMP 37.2; O2SAT 98
[2021-08-24 16:18] LABS: Glucose Point of Care 210 mg/dL (70-110)
[2021-08-24 19:43] LABS: Glucose Point of Care 178 mg/dL (70-110)
[2021-08-24 20:27] VITALS: BP 141/72; PULSE 104; RESP 17; TEMP 36.6; O2SAT 96
[2021-08-24] MEDS: quetiapine 100 mg Tablet PO (21:34)
[2021-08-24] MEDS: insulin glargine 100 units/1 mL 10 UNIT SUBCUT (21:34)
[2021-08-25 05:58] VITALS: BP 128/72; PULSE 102; RESP 17; TEMP 36.8; O2SAT 98
[2021-08-25 06:37] LABS: Glucose Point of Care 230 mg/dL (70-110)
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
[2021-08-25] MEDS: docusate sodium 100 mg Capsule PO ×2 (10:04→17:48)
[2021-08-25] MEDS: polyethylene glycol 3350 Pkt 17 gm PO (10:05)
[2021-08-25] MEDS: metformin 500 mg Tablet PO ×2 (10:05→17:48)
[2021-08-25] MEDS: insulin lispro 100 unit/1 mL SUBCUT ×3 (10:06→17:49)
[2021-08-25] MEDS: ARIPiprazole 10 mg Tablet PO (10:59)
[2021-08-25 11:37] LABS: Glucose Point of Care 176 mg/dL (70-110)
[2021-08-25 14:00] VITALS: BP 160/83; PULSE 99; RESP 20; TEMP 36.6; O2SAT 98
[2021-08-25] MEDS: nicotine 21 mg Patch 1 PATCH TRANSDERMA (14:10)
[2021-08-25 16:28] LABS: Glucose Point of Care 157 mg/dL (70-110)
[2021-08-25 19:42] LABS: Glucose Point of Care 232 mg/dL (70-110)
[2021-08-25 19:43] VITALS: BP 187/87; PULSE 103; RESP 16; TEMP 37.1; O2SAT 96
[2021-08-25] MEDS: ibuprofen 200 mg Tablet PO (20:42)
[2021-08-25] MEDS: quetiapine 100 mg Tablet PO (20:43)
[2021-08-25] MEDS: insulin glargine 100 units/1 mL 10 UNIT SUBCUT (22:19)
[2021-08-26 06:00] VITALS: BP 134/76; PULSE 93; RESP 17; TEMP 36.6; O2SAT 96; BMI 18.8
[2021-08-26 07:08] LABS: Glucose Point of Care 169 mg/dL (70-110)
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
[2021-08-26] MEDS: polyethylene glycol 3350 Pkt 17 gm PO (10:20)
[2021-08-26] MEDS: metformin 500 mg Tablet PO ×2 (10:21→17:10)
[2021-08-26] MEDS: ARIPiprazole 10 mg Tablet PO (10:21)
[2021-08-26] MEDS: ibuprofen 200 mg Tablet PO ×2 (10:21→20:57)
[2021-08-26] MEDS: insulin lispro 100 unit/1 mL SUBCUT ×3 (10:22→17:10)
[2021-08-26] MEDS: docusate sodium 100 mg Capsule PO ×2 (10:24→17:10)
[2021-08-26] MEDS: nicotine 21 mg Patch 1 PATCH TRANSDERMA (11:16)
[2021-08-26 11:31] LABS: Glucose Point of Care 184 mg/dL (70-110)
[2021-08-26 14:00] VITALS: BP 131/77; PULSE 98; RESP 19; TEMP 36.2; O2SAT 99
[2021-08-26 16:42] LABS: Glucose Point of Care 203 mg/dL (70-110)
[2021-08-26] MEDS: quetiapine 100 mg Tablet PO (20:57)
[2021-08-26] MEDS: hyDROXYzine 25 mg Capsule 50 MG PO (20:58)
[2021-08-26] MEDS: insulin glargine 100 units/1 mL 10 UNIT SUBCUT (21:02)
[2021-08-26 21:11] LABS: Glucose Point of Care 174 mg/dL (70-110)
[2021-08-26 21:37] VITALS: BP 149/81; PULSE 94; RESP 17; TEMP 36.6; O2SAT 98
[2021-08-27 06:00] VITALS: BP 138/69; PULSE 89; RESP 20; TEMP 37; O2SAT 96
[2021-08-27 06:32] LABS: Glucose Point of Care 160 mg/dL (70-110)
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
[2021-08-27] MEDS: docusate sodium 100 mg Capsule PO (08:49)
[2021-08-27] MEDS: metformin 500 mg Tablet PO (08:49)
[2021-08-27] MEDS: insulin lispro 100 unit/1 mL SUBCUT ×2 (08:50→12:22)
[2021-08-27] MEDS: ARIPiprazole 10 mg Tablet 5 MG PO (09:16)
[2021-08-27 10:28] LABS: Glucose Point of Care 237 mg/dL (70-110)
--- NOTE | 2021-08-27 11:00 | DCPLANNER ---
IMM completed 08/27/21 @ 1058. Copy of rights given to pt.
[2021-08-27 11:08] VITALS: BP 138/69; PULSE 89; RESP 20; TEMP 37; O2SAT 96
== END 2021-08-27 12:35 | disposition home or self-care (01) | DRG 885 ==
LOC: ER 19:51 → NP 20:48
PROVIDERS: Admitting Provider Psychiatry & Neurology Psychiatry; Emergency Provider Family Medicine; Visit Provider Psychiatry & Neurology Psychiatry
DX: F25.0 Schizoaffective disorder, bipolar type (principal); T74.11XA Adult physical abuse, confirmed, initial encounter; F10.20 Alcohol dependence, uncomplicated; E11.9 Type 2 diabetes mellitus without complications; F17.210 Nicotine dependence, cigarettes, uncomplicated; Z79.4 Long term (current) use of insulin
CPT/HCPCS: 36416; 71100; 80053; 80306; 80307; 81003; 82962; 84443; 85025; 96372; 97150; 97165; 99285; J1200; J1815 ×2; J2060; Q0162

== ENCOUNTER 2022-03-12 11:14 | Inpatient (IN) | payer MEDICARE, SELFPAY ==
[2022-03-12 11:17] VITALS: BP 178/92; PULSE 87; RESP 18; TEMP 36.6; O2SAT 100; BMI 24.9
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
[2022-03-12 12:05] LABS: Basophils # 0.1 10^3/uL (0.0-0.1); Basophils % 0.7 %; Eosinophils # 0.2 10^3/uL (0.0-0.8); Eosinophils % 1.8 %; Hematocrit 35.9 % (37.0-47.0); Hemoglobin 12.9 g/dL (11.5-15.3); Lymphocytes # 3.2 10^3/uL (0.8-4.8); Lymphocytes % 30.9 %; Mean Corpuscular HGB Conc 35.9 g/dL (30.0-36.0); Mean Corpuscular Hemoglobin 30.2 pg (28.0-34.0); Mean Corpuscular Volume 84.1 fl (81-99); Mean Platelet Volume 11.7 fL (7.4-10.4); Monocytes # 0.6 10^3/uL (0.2-0.9); Monocytes % 5.9 %; Neutrophils % 60.4 %; Nucleated Red Blood Cells % 0 %; Platelet Count 277 10^3/cmm (130-400); Red Blood Count 4.27 10^6/uL (4.1-5.3); Red Cell Distribution Width 12.1 % (12.1-15.1); White Blood Count 10.4 10^3/uL (4.0-10.0)
--- NOTE | 2022-03-12 12:07 | PC.PHAR ---
pt unable to verify medications-pts family nettles [phone] states the pt hasnt been taking medications for 3-5 months maybe longer states she hasnt been able to make appointments-states they use [facility] pharmacy states they havent filled since 2020-ozh last filled jul 2021-tho states the pt hasnt taken insulin for at least 5 months and is unsure what she was taking-on previous entered med list was lantus solostar 10 units qpm filled 06/06/21, novolog flexpen 5 units tid filled 06/06/21 100d/s-metformin 500mg bid -
[2022-03-12 12:36] LABS: Alanine Aminotransferase 14 U/L (0-33); Albumin Level 3.8 g/dL (3.5-5.2); Alkaline Phosphatase 124 IU/L (35-105); Anion Gap 16.2 (5-19); Aspartate Amino Transferase 15 U/L (0-32); Blood Urea Nitrogen 18 mg/dL (8-23); Calcium 8.6 mg/dL (8.5-10.5); Carbon Dioxide 25 mmol/L (22-29); Chloride 97 mmol/L (98-107); Free T4 Free Thyroxine 1.59 ng/dL (0.82-1.77); Globulin 2.9 g/dL (1.3-4.6); Glomerular Filtration Rate 63.4 mL/min (90-130); Glucose 426 mg/dL (65-115); Lipase 14 U/L (13-60); Osmolality Calculated 300 mOsm/kg (285-295); Potassium 3.2 mmol/L (3.5-5.1); Sodium 135 mmol/L (136-145); Thyroid Stimulating Hormone 0.17 uIU/mL (0.27-4.20); Total Bilirubin 0.6 mg/dL (0.15-1.2); Total Protein 6.7 g/dL (6.6-8.7)
[2022-03-12 12:37] LABS: Acetaminophen < 5.0 ug/mL (10-30); Alcohol Level < 10 mg/dL (0-10); Salicylate < 0.3 mg/dL (3-10)
[2022-03-12 14:17] LABS: Amphetamines Screen Urine Positive (Negative); Barbiturates Screen Urine Negative (Negative); Benzodiazepines Screen Urine Negative (Negative); Cocaine Screen Urine Negative (Negative); Opiate Screen Urine Negative (Negative); PCP Screen Urine Negative (Negative); THC Screen Urine Negative (Negative)
[2022-03-12 15:06] VITALS: BP 115/75; PULSE 68; RESP 18; O2SAT 96
--- NOTE | 2022-03-12 15:29 | PC.NURSE ---
pt arrived from ER at 1520 via wheelchair. pt was somnolent evident by an inability keep her eyes open and slumped over. Unable to complete admission assessment at this time.
[2022-03-12 15:31] VITALS: BP 135/85; PULSE 87; RESP 18; TEMP 36.4; O2SAT 95
[2022-03-12 20:30] VITALS: BP 159/77; PULSE 90; RESP 20; TEMP 36.6; O2SAT 95
--- NOTE | 2022-03-12 23:03 | PC.NURSE ---
PER ER- [61]yo patient w/ hx of alcohol dependence and psychosis BIBA for auditory hallucination. Per patient's , patient has not been able to care for self at home and was very agitated. Earlier today, EMS was called and patient was brought to the emergency room. In route, patient had received 2.5 mg of IV Haldol, 2 mg IV Versed and 1 L fluid. Patient is somnolent on arrival arousable to sternal rub otherwise unable to answer questions. NPU- PT ARRIVED SEDATED AND UNABLE TO ANSWER QUESTIONS. NOW THAT AWAKE PT IS ABLE TO ANSWER SOME QUESTIONS BUT IS A POOR HISTORIAN, UNSURE OF ANSWERS ARE ACCURATE. NEEDS FREQUENT REDIRECTION TO TOPIC. ANSWERS SOME QUESTIONS WHILE RAMBLING WITH GARBLED SPEECH THROUGH OTHER QUESTIONS. DENIES METH, STATES CLEAN 1 YEAR. UDS WAS + AMPH.
[2022-03-13 06:00] VITALS: BP 147/54; PULSE 85; RESP 16; TEMP 36.8; O2SAT 98
[2022-03-13 14:00] VITALS: BP 136/79; PULSE 89; RESP 17; TEMP 36.5; O2SAT 99
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
[2022-03-13 21:14] VITALS: BP 178/80; PULSE 95; RESP 17; TEMP 36.6; O2SAT 94
[2022-03-13 21:36] LABS: Glucose Point of Care 444 mg/dL (70-110)
[2022-03-13] MEDS: insulin lispro 100 unit/1 mL SUBCUT (22:13)
[2022-03-13] MEDS: hyDROXYzine 25 mg Capsule 50 MG PO (22:54)
[2022-03-13] MEDS: trazodone 50 mg Tablet PO (22:54)
[2022-03-14 02:22] LABS: Glucose Point of Care 168 mg/dL (70-110)
[2022-03-14 06:00] VITALS: BP 147/76; PULSE 89; RESP 17; TEMP 36.6; O2SAT 97
[2022-03-14 06:37] LABS: Glucose Point of Care 433 mg/dL (70-110)
[2022-03-14] MEDS: insulin lispro 100 unit/1 mL SUBCUT ×3 (07:57→17:08)
[2022-03-14 09:56] LABS: Glucose Point of Care 452 mg/dL (70-110)
[2022-03-14 11:21] LABS: Glucose Point of Care 310 mg/dL (70-110)
[2022-03-14 14:00] VITALS: BP 159/82; PULSE 97; RESP 18; TEMP 36.7; O2SAT 98
--- NOTE | 2022-03-14 16:00 | W.PM.NPUPNS ---
Subjective NPU Subjective: Patient presents today reporting that she is still sad. She had moments of tearfulness during the interview but not like it was yesterday. We discussed that this is likely the methamphetamine clearing as she is becoming less emotionally labile. Additionally we did get a hospitalist consult given her going about a year or more without adequate treatment of her diabetes. She had blood sugars in the 400s today. She was agreeable to that consult. Continue to discuss whether or not she wanted to try a low-dose antipsychotic to help with clearing of her psychosis that she continue to report wanting to think about it. Mental Status Exam MSE Comments: This is a a well-nourished, well-developed older white female looking older than her stated age in hospital scrubs with limited grooming and adequate eye contact.? No abnormal movement except for significant psychomotor agitation.? Mostly cooperative with exam in mild distress. Speech was more normal rate and volume. Mood described as I feel a little better, affect?congruent. Thought process disorganized.? Content: patient denies suicidal or homicidal ideation, there are no delusions reported but less paranoid and/or persecutory delusions noted, she? denied any auditory or visual hallucinations. Attention and concentration were limited and memory was unreliable but none were formally tested. She is alert and oriented times three. Insight and judgment are impaired and impulse control is impaired. Vitals/I&O/Wt Last Vital Signs Temp 98.1 F 03/14/22 14:00 Pulse 97 03/14/22 14:00 Resp 18 03/14/22 14:00 BP 159/82 03/14/22 14:00 Pulse Ox 98 03/14/22 14:00 Data NPU : 03/12/22 12:00 03/12/22 12:00 A&P Assessment and plan (1) Type 2 diabetes mellitus: Status: Acute (2) History of alcohol dependence: Status: Acute (3) Methamphetamine abuse: Status: Acute (4) Altered mental status: Status: Acute (5) Psychosis: Status: Acute (6) Alcohol use disorder, moderate, dependence: Status: Acute Plan This is a 61-year old female admitted for psychosis.? She has had multiple hospitalizations for depression and psychosis.? Her diagnosis has been bipolar disorder and schizophrenia.? But now with a positive UDS for methamphetamine and a reported history of significant Adderall use cause of psychosis is unclear. Plan: 1.? Continue current medications.? We will evaluate what she had on the last time she took it to determine how we will restart. And continue to offer antipsychotic 2.? Continue every 15 minute checks for safety. 3.? Encourage individual, group and milieu therapies. 4.? Encourage sober living treatment after discharge at the highest level of care to which she is willing to commit. 5.? Hospital for diabetes we will follow and implement recommendations as indicated. Involuntary Hold Information 96 Hour Hold: 96 Hour Involuntary Admission: No Attestations NPU Medical Necessity Statement*: Inpatient hospitalization is medically necessary and the clinically appropriate intervention at this time. We will monitor medication to make changes as indicated. Likely length of stay 3-5 days. Coding Level of Care Code Acute Prospecting Driller for [facility] Diagnoses Type 2 diabetes mellitus E11.9 History of alcohol dependence F10.21 Methamphetamine abuse F15.10 Altered mental status R41.82 Psychosis F29 Alcohol use disorder, moderate, dependence F10.20
[2022-03-14 16:19] LABS: Glucose Point of Care 357 mg/dL (70-110)
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
[2022-03-14 16:49] LABS: Estmated Average Glucose 401; Hemoglobin A1C 15.6 % (4.0-6.0)
[2022-03-14] MEDS: insulin glargine 100 units/1 mL 10 UNIT SUBCUT (18:36)
[2022-03-14 20:19] LABS: Estmated Average Glucose 381; Hemoglobin A1C 14.9 % (4.0-6.0)
[2022-03-14 20:26] LABS: Glucose Point of Care 138 mg/dL (70-110)
[2022-03-14 20:41] VITALS: BP 150/71; PULSE 87; RESP 15; TEMP 36.9; O2SAT 98
[2022-03-14] MEDS: trazodone 50 mg Tablet PO (22:38)
[2022-03-15 06:00] VITALS: BP 156/79; PULSE 91; RESP 17; TEMP 36.5; O2SAT 97
[2022-03-15] MEDS: insulin glargine 100 units/1 mL 10 UNIT SUBCUT (06:09)
[2022-03-15 06:10] LABS: Glucose Point of Care 459 mg/dL (70-110)
[2022-03-15] MEDS: nicotine 21 mg Patch 1 PATCH TRANSDERMA (08:24)
[2022-03-15] MEDS: hyDROXYzine 25 mg Capsule 50 MG PO ×3 (08:24→22:25)
[2022-03-15] MEDS: insulin lispro 100 unit/1 mL SUBCUT ×4 (08:24→21:30)
[2022-03-15 11:18] LABS: Glucose Point of Care 319 mg/dL (70-110)
[2022-03-15 14:00] VITALS: BP 156/53; PULSE 98; RESP 16; TEMP 36.6; O2SAT 98
[2022-03-15 16:20] LABS: Glucose Point of Care 308 mg/dL (70-110)
[2022-03-15] MEDS: insulin glargine 100 units/1 mL 20 UNIT SUBCUT (16:22)
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
[2022-03-15 18:21] LABS: Glucose Point of Care 311 mg/dL (70-110)
[2022-03-15 19:54] VITALS: BP 165/78; PULSE 104; RESP 18; O2SAT 99
[2022-03-15 20:08] LABS: Glucose Point of Care 156 mg/dL (70-110)
[2022-03-15] MEDS: LORazepam 1 mg Tablet PO (20:42)
[2022-03-15] MEDS: trazodone 50 mg Tablet PO ×2 (20:43→22:26)
[2022-03-15] MEDS: acetaminophen 325 mg Tablet 650 MG PO (22:26)
[2022-03-16 06:00] VITALS: BP 156/77; PULSE 86; RESP 17; O2SAT 98
[2022-03-16] MEDS: insulin glargine 100 units/1 mL 20 UNIT SUBCUT ×2 (06:18→17:47)
[2022-03-16 06:58] LABS: Glucose Point of Care 259 mg/dL (70-110)
[2022-03-16] MEDS: insulin lispro 100 unit/1 mL SUBCUT ×4 (09:01→20:50)
[2022-03-16 11:42] LABS: Glucose Point of Care 338 mg/dL (70-110)
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
[2022-03-16 14:00] VITALS: BP 144/63; PULSE 87; RESP 18; TEMP 36.8; O2SAT 98
[2022-03-16 16:40] LABS: Glucose Point of Care 141 mg/dL (70-110)
[2022-03-16 19:39] VITALS: BP 167/78; PULSE 93; RESP 20; TEMP 36.8; O2SAT 98
[2022-03-16] MEDS: loperamide 2 mg Capsule PO (20:25)
[2022-03-16 20:47] LABS: Glucose Point of Care 191 mg/dL (70-110)
[2022-03-16] MEDS: trazodone 50 mg Tablet PO (20:56)
[2022-03-16] MEDS: hyDROXYzine 25 mg Capsule 50 MG PO (20:56)
--- NOTE | 2022-03-16 20:58 | PC.NURSE ---
PT IS VERY TEARFUL THIS EVENING, REPEATS MULTIPLE TIMES SHE DOES NOT SURE IF SHE IS WORTH FIGHTING FOR ANYMORE. PT CONTRACTED FOR SAFETY AND ONCE TALKING WITH STAFF STATED SHE FELT BETTER. PT IS CURRENTLY RESTING IN BED, VISTERIL GIVEN FOR ANXIETY.
--- NOTE | 2022-03-16 22:21 | PC.NURSE ---
PRN PT HAS HAD SEVERE EPISODES OF CONSTANT DIARRHEA. PT GOING MULTIPLE TIMES A HOUR. IMODIUM GIVEN, AND PT VERBALIZES IT HAS HELPED.
[2022-03-16 23:11] LABS: Glucose Point of Care 69 mg/dL (70-110)
--- NOTE | 2022-03-16 23:15 | PC.NURSE ---
PT CAME TO NURSES STATION COMPLAINING OF SWEATING AND NOT FEELING RIGHT . THIS NURSE ASSISTED PT BACK TO BED AND CHECKED GLUCOSE LEVEL. GLUCOSE WAS 69. PT WAS GIVEN A SNACK AND APPLE JUICE. PT IS NOW SITTING IN BED.
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
[2022-03-17] MEDS: LORazepam 1 mg Tablet PO (01:52)
[2022-03-17 02:26] LABS: Glucose Point of Care 170 mg/dL (70-110)
--- NOTE | 2022-03-17 02:26 | PC.NURSE ---
PT CAME TO NURSES STATION STATING MY RECTUM IS BLEEDING . PT REPEATED THIS TWICE. THIS NURSE WALKED HER BACK TO BED AND THE PT ASK IF THIS NURSE WOULD LOOK AT HER RECTUM TO LOOK FOR A HEMORRHOIDS. PT STATES SHE HAS HAD THEM IN THE PAST AND SHE HAS A SMALL AMOUNT OF BRIGHT RED BLOOD. THIS NURSE ASSESSED PT ANUS AND IT WAS SLIGHTLY REDDENED AND IRRITATED. PT HAS HAD DIARRHEA MOST OF THE DAY. NO HEMORRHOIDS WERE SCENE. PT STATES MY RECTUM IS SO SORE I CAN NOT CLOSE IT. PT THEN ASK THIS NURSE IF HER BLOOD SUGAR COULD BE RECHECKED SO PT COULD EAT MORE CHEESE ITS. BLOOD GLUCOSE WAS 171. PT ADVISED IF SHE WANTED A SNACK IT WOULD BE BEST IF THE SNACK WAS SUGAR FREE. PT WAS AGREEABLE. PT NOW RESTING BACK IN BED.
[2022-03-17 06:00] VITALS: RESP 16
[2022-03-17] MEDS: loperamide 2 mg Capsule PO (06:12)
[2022-03-17] MEDS: insulin glargine 100 units/1 mL 20 UNIT SUBCUT ×2 (06:12→18:11)
[2022-03-17 06:20] LABS: Glucose Point of Care 162 mg/dL (70-110)
[2022-03-17] MEDS: acetaminophen 325 mg Tablet 650 MG PO (08:39)
[2022-03-17] MEDS: ondansetron 4 MG Tablet PO (08:40)
[2022-03-17] MEDS: insulin lispro 100 unit/1 mL SUBCUT ×4 (08:40→20:30)
[2022-03-17 11:15] LABS: Glucose Point of Care 321 mg/dL (70-110)
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
[2022-03-17 14:00] VITALS: BP 158/68; PULSE 87; RESP 18; TEMP 36.9; O2SAT 98
[2022-03-17 14:53] LABS: Glucose Point of Care 155 mg/dL (70-110)
[2022-03-17 16:36] LABS: Glucose Point of Care 174 mg/dL (70-110)
[2022-03-17 18:27] LABS: Glucose Point of Care 282 mg/dL (70-110)
--- NOTE | 2022-03-17 18:34 | PC.NURSE ---
Pt received 6 units of humalog, pt stated that she didn't want to take all 12 units in fear of bottoming out.
[2022-03-17 19:56] LABS: Glucose Point of Care 195 mg/dL (70-110)
[2022-03-17 19:59] VITALS: BP 145/76; PULSE 83; RESP 16; TEMP 36.6; O2SAT 96
[2022-03-17 23:08] LABS: Glucose Point of Care 63 mg/dL (70-110)
--- NOTE | 2022-03-17 23:16 | PC.NURSE ---
PT CALLED STAFF TO ROOM NEEDING ASSISTANCE. PT NOTED TO BE DIAPHORETIC AND SHAKY. CHECK OF PT'S ACCU CHECK RESULT OF 63 OBTAINED. SNACK OF ENSURE AND 2 PACKS OF PEANUT BUTTER CRACKERS GIVEN. PT VOICED FEELING BETTER. WILL MONITOR PT CLOSELY FOR ADDITIONAL S/S OF HYPOGLYCEMIA.
[2022-03-18] MEDS: trazodone 50 mg Tablet PO (01:02)
[2022-03-18 02:07] LABS: Glucose Point of Care 200 mg/dL (70-110)
[2022-03-18 06:00] VITALS: BP 147/55; PULSE 81; RESP 17; TEMP 36.8; O2SAT 97
[2022-03-18] MEDS: insulin glargine 100 units/1 mL 20 UNIT SUBCUT (06:21)
[2022-03-18 06:22] LABS: Glucose Point of Care 204 mg/dL (70-110)
[2022-03-18] MEDS: insulin lispro 100 unit/1 mL SUBCUT (08:11)
[2022-03-18 11:27] LABS: Glucose Point of Care 125 mg/dL (70-110)
--- NOTE | 2022-03-18 12:05 | DCPLANNER ---
SHERLYN completed on 03/18/22 @ [id number]. Pt was given a copy of her rights and she stated she understood her rights.
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
[2022-03-18 14:47] VITALS: BP 147/55; PULSE 81; RESP 17; TEMP 36.8; O2SAT 97
== END 2022-03-18 15:00 | disposition home or self-care (01) | DRG 897 ==
LOC: ER 14:13 → NP 15:01
PROVIDERS: Family Medicine; Internal Medicine; Admitting Provider Psychiatry & Neurology Psychiatry; Emergency Provider Emergency Medicine; Visit Provider Psychiatry & Neurology Psychiatry
DX: F15.251 Other stimulant dependence with stimulant-induced psychotic disorder with hallucinations (principal); F10.20 Alcohol dependence, uncomplicated; F17.200 Nicotine dependence, unspecified, uncomplicated; E11.9 Type 2 diabetes mellitus without complications; T38.3X6A Underdosing of insulin and oral hypoglycemic [antidiabetic] drugs, initial encounter; R19.7 Diarrhea, unspecified; F31.9 Bipolar disorder, unspecified; F20.9 Schizophrenia, unspecified; Z62.819 Personal history of unspecified abuse in childhood; Z79.899 Other long term (current) drug therapy; Z91.410 Personal history of adult physical and sexual abuse
CPT/HCPCS: 36415; 36416; 70450; 80053; 80306; 80307; 82962; 83036; 83690; 84439; 84443; 85025; 96372; 97165; 99285; J1815 ×2; Q0162

== ENCOUNTER 2022-03-25 09:19 | Emergency (ER) | payer MEDICARE, SELFPAY ==
[2022-03-25 09:25] VITALS: BP 165/93; PULSE 95; RESP 20; O2SAT 98; BMI 23.0
--- NOTE | 2022-03-25 09:36 | CT_ITS ---
WS: [id number] CT CERVICAL SPINE HISTORY: trauma TECHNIQUE: Contiguous 2.5 mm axial imaging performed through the entire cervical spine. Sagittal and coronal reformats also performed. All CT scans at [facility] use at least one of these dose o ptimization techniques: automated exposure control; mA and/or kV adjustment per patient size (include s targeted exams where dose is matched to clinical indication); or iterative reconstruction. DLP: 462.04 mGy.cm COMPARISON: None available. Craniocervical junction is normal. Degenerative narrowing of the predental space. Lateral masses of C 1 and C2 are aligned. No acute fractures are identified in the cervical spine. Severe disc space narr owing and desiccation with chronic endplate changes at C5-6. Mild S-shaped curvature cervical spine. Bony fusion across the C2-3 facet joints. C2-C3: Mild facet arthritis. C3-C4: Mild osteophytic ridging with severe bilateral facet joint arthritis and bony hypertrophy. Mil d foraminal narrowing. C4-C5: Osteophytic ridging vertebral bodies. Severe RIGHT and mild LEFT facet joint arthritis. Severe RIGHT foraminal stenosis. C5-C6: Diffuse osteophytic ridging with marked facet joint arthritis. Severe bilateral foraminal sten osis. C6-C7: Facet joint arthritis with moderate bilateral foraminal stenosis. C7-T1: Mild LEFT foraminal stenosis. Soft tissues are normal. Lung apices are clear. CT/CT cervical spin wo con* [id number] IMPRESSION: 1. No acute cervical spine fracture. 2. Multilevel marked facet joint arthritis as above. 3. Severe RIGHT foraminal stenosis and facet joint arthritis at C4-5. 4. Severe bilateral facet joint arthritis at C3-4 and mild foraminal stenosis. 5. Severe bilateral foraminal stenosis at C5-6 and moderate at C6-7.
[2022-03-25 09:45] LABS: Glucose Point of Care 343 mg/dL (70-110)
[2022-03-25 10:04] LABS: Basophils # 0.1 10^3/uL (0.0-0.1); Basophils % 0.6 %; Eosinophils # 0.2 10^3/uL (0.0-0.8); Eosinophils % 2.2 %; Hematocrit 38.7 % (37.0-47.0); Hemoglobin 13.4 g/dL (11.5-15.3); Lymphocytes # 2.5 10^3/uL (0.8-4.8); Lymphocytes % 22.4 %; Mean Corpuscular HGB Conc 34.6 g/dL (30.0-36.0); Mean Corpuscular Hemoglobin 29.8 pg (28.0-34.0); Monocytes # 0.5 10^3/uL (0.2-0.9); Monocytes % 4.5 %; Neutrophils # 7.71 10^3/uL (1.8-7.7); Neutrophils % 69.9 %; Nucleated Red Blood Cells % 0 %; Platelet Count 334 10^3/cmm (130-400); Red Cell Distribution Width 12.3 % (12.1-15.1)
[2022-03-25] MEDS: insulin regular-human 100 units/1 mL 10 UNIT SUBCUT (10:18)
[2022-03-25 10:24] LABS: Alanine Aminotransferase 11 U/L (0-33); Albumin Level 3.8 g/dL (3.5-5.2); Alkaline Phosphatase 125 IU/L (35-105); Anion Gap 13.9 (5-19); Aspartate Amino Transferase 10 U/L (0-32); Blood Urea Nitrogen 10 mg/dL (8-23); Calcium 9.1 mg/dL (8.5-10.5); Carbon Dioxide 26 mmol/L (22-29); Chloride 98 mmol/L (98-107); Creatine Phosphokinase 41 U/L (26-192); Creatinine Clr Calc Pharmacy 87.6824; Globulin 3.3 g/dL (1.3-4.6); Glomerular Filtration Rate 101.3 mL/min (90-130); Glucose 335 mg/dL (65-115); Osmolality Calculated 290 mOsm/kg (285-295); Potassium 3.9 mmol/L (3.5-5.1); Sodium 134 mmol/L (136-145); Total Bilirubin 0.4 mg/dL (0.15-1.2); Total Protein 7.1 g/dL (6.6-8.7)
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
== END 2022-03-25 11:26 | disposition home or self-care (01) ==
PROVIDERS: Emergency Provider Family Medicine
DX: S19.9XXA Unspecified injury of neck, initial encounter (principal); Y04.8XXA Assault by other bodily force, initial encounter; E11.9 Type 2 diabetes mellitus without complications; F17.210 Nicotine dependence, cigarettes, uncomplicated
CPT/HCPCS: 36416; 72125; 80053; 82550; 82962; 85025; 96372; 99284; J1815